=== PATIENT | female | born 1970 | race Caucasian/White ===

== ENCOUNTER 2016-10-01 21:07 | Emergency (ER) | payer BC, OTHER ==
--- NOTE | ~2016-10-01 | CT4 ---
[facility] A Service of [facility] RADIOLOGY TEXT RESULTS PATIENT: SHWETHA DECKER LOCATION: [facility] : 74 UNIT #: [id number] AGE: [address]: Armani Pelletier MD SEX: F ORDER DR: [id number] [facility] [address] [place], [place] [address] [id number] E MR#: [id number] Acc #: [id number] NAME: SHWETHA DECKER : 1970 SEX: F STUDY DATE/TIME: 10/01/2016 22:35 UNIT: [facility] ROOM: STUDY DESCRIPTION: CT Abd and Pelv Wo Cont Attending Physician: Armani Pelletier M.D. Ordering Physician: Armani Pelletier M.D. Primary Care Physician: Primary Care Physician No MEDICAL IMAGING REPORT This report is preliminary unless electronic signature is present EXAM Abdomen and pelvis CT no contrast 10/01/2016 INDICATIONS 46-year-old female with left lower quadrant abdominal pain, nausea, flank pain on the right since 0800 hours today. History of kidney stones. TECHNIQUE Noncontrast CT of the abdomen and pelvis was performed and compared with 11/22/2010. The CT exam was performed with one or more of the following radiation dose reduction techniques: automatic exposure control, adjustment of mA and/or kV according to patient size, and iterative reconstruction. FINDINGS Exam degraded by noncontrast technique. Included lung bases are clear. No effusion. No pericardial effusion. Aorta unremarkable. Spleen and adrenal glands normal. Gallbladder surgically absent. Pancreas unremarkable. Liver unremarkable. Kidneys demonstrate nonobstructing stones bilaterally. The largest in the left kidney measures about 8 mm. Visualized ureters unremarkable. Reactive-appearing retroperitoneal nodes. CT PELVIS: Bladder unremarkable. Uterus surgically absent. No adnexal mass or drainable fluid collection in the pelvis. The appendix is normal. Inguinal canals unremarkable. No suspicious bone lesion. IMPRESSION 1. Negative noncontrast abdomen and pelvis CT. Appendix normal. No bowel obstruction or drainable fluid collection. No focal area [facility] A Service of [facility] RADIOLOGY TEXT RESULTS PATIENT: SHWET[facility] DECK[id number] 74 UNIT #: [id number] AGE: [address]: Armani Pelletier MD SEX: F ORDER DR: inflammatory change. 2. Nonobstructing stones in the kidneys bilaterally the largest of which measures 8 mm. 3. Gallbladder surgically absent along with the uterus. Dictated by... Piotr Merchant M.D. THIS IS AN ELECTRONICALLY VERIFIED REPORT Piotr Merchant M.D. at 10/02/2016 10:03 PM Jennifer TD: 10/02/2016 09:22 JOB #: [id number] MEDICAL IMAGING REPORT Page 1 of 1 COPY
[2016-10-01 20:30] LABS: URINE SOURCE CLEAN CATCH
[2016-10-01 20:35] LABS: BASOPHIL% 0.5 % (0-2.5); EOSINOPHIL# 0.2 X10e3 (0-0.7); EOSINOPHIL% 2.5 % (0.0-7.0); LYMPHOCYTE# 3.1 X10e3 (1.0-3.5); LYMPHOCYTE% 36.8 % (17.0-45.0); MEAN CELL VOLUME 79.2 FL (83-96); MEAN CORPUSCULAR HEMOGLOBIN 26.4 PG (28-34); MEAN CORPUSCULAR HGB CONC 33.3 g/dL (30-36); MONOCYTE# 0.6 X10e3 (0-1.0); MONOCYTE% 7.3 % (3.0-12.0); NEUTROPHIL# 4.4 X10e3 (1.5-7.1); NEUTROPHIL% 52.9 % (40-75); PLATELET COUNT 252 X10e3 (140-420); RED CELL DISTRIBUTION WIDTH 12.9 % (11.0-15.5); WHITE BLOOD COUNT 8.4 X10e3 (4.0-10.5)
[2016-10-01 20:42] LABS: DIFF IND NO
[2016-10-01 20:45] LABS: URINE APPEARANCE CLEAR; URINE BILIRUBIN NEG (NEG); URINE BLOOD 1+ (NEG); URINE COLOR YELLOW; URINE GLUCOSE NEG (NEG); URINE KETONE NEG (NEG); URINE LEUKOCYTE ESTERASE NEG (NEG); URINE NITRATE NEG (NEG); URINE PH 6.5 (5-8); URINE PROTEIN NEG (NEG); URINE SPECIFIC GRAVITY 1.021 (1.003-1.035)
[2016-10-01 20:51] LABS: CULTURE INDICATED? YES; URINE BACTERIA AUWI 2+ (NEGATIVE); URINE SQUAMOUS EPITHELIAL CELL FEW /[HPF]
[2016-10-01 21:01] LABS: ALBUMIN SERUM 4.3 g/dL (3.5-5.0); BILIRUBIN, DIRECT 0.1 mg/dL (0.0-0.2); BILIRUBIN,TOTAL 0.1 mg/dL (0.2-2.0); CALCIUM SERUM 9.4 mg/dL (8.4-10.2); GLOM FILT RATE Estimated 68.5 mL/min (>60); POTASSIUM 3.6 mmol/L (3.5-5.1); PROTEIN TOTAL SERUM 7.8 g/dL (6.0-8.3)
[~2016-10-01 21:07] MED LIST: AFRIN15 M1 INH; ALBUTEROL17 GM INH; AMOXICILLIN875 MG PO; ERYTHROMYC3.5 GM OPT OD; FIORICET W/CODE1 CAP PO; FIORINAL 50-321 EACH PO; FLAGYL PO; FLEXERIL PO; FLEXERIL10 MG PO; IBUPROFEN800 MG PO; ILOTYCIN1 GM OD; MEDROL DOSEPAK4 MG PO; MEDROL PO; MEDROL4 MG/DOSE- PO; MOBIC PO; NAPROSYN250 M1 PO; NAPROSYN500 MG PO; NEURONTIN300 MG PO; NO MEDICATIONS; NORFLEX100 M1 PO; OMEPRAZOLE40 MG PO; PHENERGAN25 MG PO; PRED FORTE1 ML OP; PREDNISONE PO; ROBAXIN500 MG; ROBAXIN500 MG PO; SUDAFED30 M1 PO; TESSALON200 MG PO; TYLENOL #3 PO; TYLOX 5/500 CAP1 CAP PO; ULTRAM PO; VICODIN 5/1 TAB 5/50 PO; VICODIN 5/500 T1 TAB PO; VOLTAREN75 MG PO; ZITHROMAX PO; ZITHROMAX100 MG/5 M PO; ZOFRANODT PO
== END 2016-10-02 00:10 | disposition home or self-care (01) ==
LOC: CED 21:07
PROVIDERS: Emergency Medicine
DX: N39.0 Urinary tract infection, site not specified (principal); Z87.442 Personal history of urinary calculi; Z90.710 Acquired absence of both cervix and uterus; Z98.51 Tubal ligation status; Z90.49 Acquired absence of other specified parts of digestive tract
CPT/HCPCS: 36415; 74176; 80048; 80076; 81003; 83690; 84703; 85025; 87086; 96374; 96375; 99284; J1170; J2405